=== PATIENT | female | born 1950 | race Caucasian/White ===

== ENCOUNTER → 2016-10-19 | Outpatient (CLI) | payer MEDICARE, OTHER ==
[~2016-10-19] MED LIST: ASPIRIN E.C. 8181 MG PO; AVELOX 400MG T400 MG PO; BLACK COHOSH40 MG PO; CARDI-OMEGA1000 MG PO; CO Q-1010 MG PO; COLACE 100100 MG/CAP PO; CRESTOR5 MG PO; NEXIUM 40MG40 MG PO; PROMETHAZINE12.5 M5 PO; SYNTHROID0.075 MG PO; ZOFRAN4 M1 PO
== END ==
LOC: MC.RAD 09:40
DX: Z12.31 Encounter for screening mammogram for malignant neoplasm of breast (principal)

== ENCOUNTER → 2017-11-17 | Outpatient (CLI) | payer MEDICARE, OTHER | LOC: MC.RAD 14:20 | DX: Z12.31 Encounter for screening mammogram for malignant neoplasm of breast (principal); Z98.82 Breast implant status ==

== ENCOUNTER → 2017-11-23 | Outpatient (CLI) | payer MEDICARE, OTHER ==
[~2017-11-23] VITALS: Ht 158.8 cm; Wt 79.6 kg
[~2017-11-23] MED LIST changes: -CO Q-1010 MG PO; +CRANBERRY 100 M1 SGL PO; +CRESTOR 10MG10 MG PO; +GLUCOPHAGE XR500 M1 PO; +MACRODANTIN50 MG/CA1 PO; +MYRBETR50MG PO; +NASONEX SPRAY17 GM NS; +PEPCID 20MG TAB20 MG PO; +PREMARIN VAG42.5 GM VG; +SYNTHROID0.088 MG/T PO; +THE MEDICINE S200 M2 PO; +ZYRTEC 10MG10 MG PO
[2017-11-23 14:41] VITALS: BP 120/66; PULSE 52
== END ==
LOC: LIGHT 13:46
DX: E03.9 Hypothyroidism, unspecified (principal); E78.5 Hyperlipidemia, unspecified; R73.01 Impaired fasting glucose; E66.9 Obesity, unspecified; Z68.31 Body mass index [BMI] 31.0-31.9, adult; Z71.3 Dietary counseling and surveillance
CPT/HCPCS: G0463

== ENCOUNTER → 2017-12-22 | Outpatient (CLI) | payer MEDICARE, OTHER | LOC: LIGHT 14:01 | DX: E78.5 Hyperlipidemia, unspecified (principal); R73.01 Impaired fasting glucose; E03.9 Hypothyroidism, unspecified; E66.9 Obesity, unspecified; Z68.31 Body mass index [BMI] 31.0-31.9, adult; Z71.3 Dietary counseling and surveillance ==

== ENCOUNTER → 2017-12-26 | Outpatient (CLI) | payer MEDICARE, OTHER | LOC: LIGHT 07:48 | DX: R73.01 Impaired fasting glucose (principal); E78.5 Hyperlipidemia, unspecified; E03.9 Hypothyroidism, unspecified; E66.9 Obesity, unspecified; Z68.31 Body mass index [BMI] 31.0-31.9, adult; Z71.3 Dietary counseling and surveillance ==

== ENCOUNTER → 2018-01-04 | Outpatient (CLI) | payer MEDICARE, OTHER ==
[~2018-01-04] VITALS: Ht 158.8 cm; Wt 77.8 kg
[2018-01-04 13:51] VITALS: BP 126/54; PULSE 68
== END ==
LOC: LIGHT 11:43
DX: E88.81 Metabolic syndrome and other insulin resistance (principal); E78.5 Hyperlipidemia, unspecified; E03.9 Hypothyroidism, unspecified; E66.9 Obesity, unspecified; Z68.30 Body mass index [BMI] 30.0-30.9, adult; Z71.3 Dietary counseling and surveillance
CPT/HCPCS: G0463

== ENCOUNTER → 2018-02-15 | Outpatient (CLI) | payer MEDICARE, OTHER ==
[~2018-02-15] VITALS: Ht 158.8 cm; Wt 76.7 kg
[2018-02-15 13:52] VITALS: BP 130/52; PULSE 60
== END ==
LOC: LIGHT 13:27
DX: E88.81 Metabolic syndrome and other insulin resistance (principal); E78.5 Hyperlipidemia, unspecified; E03.9 Hypothyroidism, unspecified; E66.9 Obesity, unspecified; Z68.30 Body mass index [BMI] 30.0-30.9, adult; Z71.3 Dietary counseling and surveillance
CPT/HCPCS: G0463

== ENCOUNTER → 2018-03-15 | Outpatient (CLI) | payer MEDICARE, OTHER ==
[~2018-03-15] VITALS: Ht 158.8 cm; Wt 76.2 kg
[2018-03-15 10:14] VITALS: BP 150/76; PULSE 60
== END ==
LOC: LIGHT 10:01
DX: E88.81 Metabolic syndrome and other insulin resistance (principal); E78.5 Hyperlipidemia, unspecified; E03.9 Hypothyroidism, unspecified; E66.9 Obesity, unspecified; Z68.30 Body mass index [BMI] 30.0-30.9, adult; Z71.3 Dietary counseling and surveillance
CPT/HCPCS: G0463

== ENCOUNTER → 2018-04-19 | Outpatient (CLI) | payer MEDICARE, OTHER ==
[~2018-04-19] VITALS: Ht 158.8 cm; Wt 75.7 kg
[2018-04-19 10:39] VITALS: BP 110/60; PULSE 64
== END ==
LOC: LIGHT 10:24
DX: R73.01 Impaired fasting glucose (principal); E78.5 Hyperlipidemia, unspecified; E03.9 Hypothyroidism, unspecified; E66.9 Obesity, unspecified; Z68.30 Body mass index [BMI] 30.0-30.9, adult; Z71.3 Dietary counseling and surveillance
CPT/HCPCS: G0463

== ENCOUNTER → 2018-05-24 | Outpatient (CLI) | payer MEDICARE, OTHER ==
[~2018-05-24] VITALS: Ht 158.8 cm; Wt 76.7 kg
[2018-05-24 13:33] VITALS: BP 110/80; PULSE 68
== END ==
LOC: LIGHT 13:21
DX: R73.01 Impaired fasting glucose (principal); E78.5 Hyperlipidemia, unspecified; E03.9 Hypothyroidism, unspecified; E66.9 Obesity, unspecified; Z68.30 Body mass index [BMI] 30.0-30.9, adult; Z71.3 Dietary counseling and surveillance
CPT/HCPCS: G0463

== ENCOUNTER → 2018-06-28 | Outpatient (CLI) | payer MEDICARE, OTHER ==
[~2018-06-28] VITALS: Ht 158.8 cm; Wt 76.9 kg
[2018-06-28 14:20] VITALS: BP 128/82; PULSE 60
== END ==
LOC: LIGHT 13:27
DX: R73.01 Impaired fasting glucose (principal); E78.5 Hyperlipidemia, unspecified; E03.9 Hypothyroidism, unspecified; E66.9 Obesity, unspecified; Z71.3 Dietary counseling and surveillance

== ENCOUNTER → 2018-08-09 | Outpatient (CLI) | payer MEDICARE, OTHER ==
[~2018-08-09] VITALS: Ht 158.8 cm; Wt 77.8 kg
[2018-08-09 10:21] VITALS: BP 130/64; PULSE 60
== END ==
LOC: LIGHT 10:02
DX: R73.01 Impaired fasting glucose (principal); E78.5 Hyperlipidemia, unspecified; E03.9 Hypothyroidism, unspecified; E66.9 Obesity, unspecified; Z68.30 Body mass index [BMI] 30.0-30.9, adult; Z71.3 Dietary counseling and surveillance
CPT/HCPCS: G0463

== ENCOUNTER → 2018-09-13 | Outpatient (CLI) | payer MEDICARE, OTHER ==
[~2018-09-13] VITALS: Ht 158.8 cm; Wt 76.7 kg
[2018-09-13 11:44] VITALS: BP 134/80; PULSE 60
== END ==
LOC: LIGHT 11:33
DX: R73.01 Impaired fasting glucose (principal); E78.5 Hyperlipidemia, unspecified; E03.9 Hypothyroidism, unspecified; E66.9 Obesity, unspecified; Z68.30 Body mass index [BMI] 30.0-30.9, adult; Z71.3 Dietary counseling and surveillance
CPT/HCPCS: G0463

== ENCOUNTER → 2018-10-18 | Outpatient (CLI) | payer MEDICARE, OTHER ==
[~2018-10-18] VITALS: Ht 158.8 cm; Wt 75.5 kg
[2018-10-18 14:02] VITALS: BP 130/66; PULSE 60
== END ==
LOC: LIGHT 11:42
DX: R73.01 Impaired fasting glucose (principal); E78.5 Hyperlipidemia, unspecified; E03.9 Hypothyroidism, unspecified; E66.9 Obesity, unspecified; Z68.30 Body mass index [BMI] 30.0-30.9, adult; Z71.3 Dietary counseling and surveillance
CPT/HCPCS: G0463

== ENCOUNTER → 2018-11-15 | Outpatient (CLI) | payer MEDICARE, OTHER ==
[~2018-11-15] VITALS: Ht 158.8 cm; Wt 76.0 kg
[2018-11-15 09:42] VITALS: BP 134/80; PULSE 68
== END ==
LOC: LIGHT 09:34
DX: R73.01 Impaired fasting glucose (principal); E78.5 Hyperlipidemia, unspecified; E03.9 Hypothyroidism, unspecified; E66.9 Obesity, unspecified; Z68.30 Body mass index [BMI] 30.0-30.9, adult; Z71.3 Dietary counseling and surveillance
CPT/HCPCS: G0463

== ENCOUNTER → 2018-12-24 | Outpatient (CLI) | payer MEDICARE, OTHER | LOC: MC.RAD 10:56 | DX: Z12.31 Encounter for screening mammogram for malignant neoplasm of breast (principal) ==

== ENCOUNTER → 2019-01-03 | Outpatient (CLI) | payer MEDICARE, OTHER ==
[~2019-01-03] VITALS: Ht 158.8 cm; Wt 77.6 kg
[~2019-01-03] MED LIST changes: +PHENTERMINE15 MG PO
[2019-01-03 14:11] VITALS: BP 128/60; PULSE 64
== END ==
LOC: LIGHT 11:48
DX: R73.01 Impaired fasting glucose (principal); E78.5 Hyperlipidemia, unspecified; E03.9 Hypothyroidism, unspecified; E66.9 Obesity, unspecified; Z68.30 Body mass index [BMI] 30.0-30.9, adult; Z71.3 Dietary counseling and surveillance
CPT/HCPCS: G0463

== ENCOUNTER 2019-01-29 10:45 | Outpatient (RCR) | payer MEDICARE, OTHER ==
[2019-03-21] MEDS ORDERED: TROKEND25 PO (13:49)
== END 2019-03-25 | disposition home or self-care (01) ==
LOC: MKS.ESL.PT
DX: M16.11 Unilateral primary osteoarthritis, right hip (principal)

== ENCOUNTER → 2019-02-14 | Outpatient (CLI) | payer MEDICARE, OTHER ==
[~2019-02-14] VITALS: Ht 158.8 cm; Wt 77.6 kg
[2019-02-14 15:36] VITALS: BP 136/76; PULSE 60
== END ==
LOC: LIGHT 01-31 14:14
DX: E78.5 Hyperlipidemia, unspecified (principal); R73.01 Impaired fasting glucose; E03.9 Hypothyroidism, unspecified; E66.9 Obesity, unspecified; Z68.30 Body mass index [BMI] 30.0-30.9, adult; Z71.3 Dietary counseling and surveillance
CPT/HCPCS: G0463

== ENCOUNTER → 2019-03-21 | Outpatient (CLI) | payer MEDICARE, OTHER ==
[~2019-03-21] VITALS: Ht 158.8 cm; Wt 76.9 kg
[~2019-03-21] MED LIST changes: +TROKEND25 PO
[2019-03-21 10:33] VITALS: BP 120/80; PULSE 60
== END ==
LOC: LIGHT 10:20
DX: R73.01 Impaired fasting glucose (principal); E78.5 Hyperlipidemia, unspecified; E03.9 Hypothyroidism, unspecified; E66.9 Obesity, unspecified; Z68.30 Body mass index [BMI] 30.0-30.9, adult; Z71.3 Dietary counseling and surveillance
CPT/HCPCS: G0463

== ENCOUNTER → 2019-06-27 | Outpatient (CLI) | payer MEDICARE, OTHER ==
[~2019-06-27] VITALS: Ht 158.8 cm; Wt 76.4 kg
[2019-06-27 10:51] VITALS: BP 126/72; PULSE 68
== END ==
LOC: LIGHT 10:39
DX: Z68.30 Body mass index [BMI] 30.0-30.9, adult (principal); R73.01 Impaired fasting glucose; E78.5 Hyperlipidemia, unspecified
CPT/HCPCS: G0463

== ENCOUNTER → 2019-12-05 | Outpatient (CLI) | payer MEDICARE, OTHER ==
[~2019-12-05] VITALS: Ht 158.8 cm; Wt 78.2 kg
[2019-12-05 10:50] VITALS: BP 146/70; PULSE 68
== END ==
LOC: LIGHT 10:15
DX: E66.8 Other obesity (principal); Z68.31 Body mass index [BMI] 31.0-31.9, adult; R73.01 Impaired fasting glucose; E78.5 Hyperlipidemia, unspecified; E03.9 Hypothyroidism, unspecified
CPT/HCPCS: G0463

== ENCOUNTER → 2019-12-26 | Outpatient (CLI) | payer MEDICARE, OTHER | LOC: MC.RAD 10:45 | DX: Z12.31 Encounter for screening mammogram for malignant neoplasm of breast (principal); Z98.82 Breast implant status ==

== ENCOUNTER → 2020-02-27 | Outpatient (CLI) | payer MEDICARE, OTHER ==
[~2020-02-27] VITALS: Ht 158.8 cm; Wt 78.0 kg
[2020-02-27 14:20] VITALS: BP 158/70; PULSE 60
== END ==
LOC: LIGHT 01-23 11:04
DX: E66.8 Other obesity (principal); Z68.31 Body mass index [BMI] 31.0-31.9, adult; R73.01 Impaired fasting glucose; E78.5 Hyperlipidemia, unspecified; E03.9 Hypothyroidism, unspecified
CPT/HCPCS: G0463

== ENCOUNTER 2020-11-06 10:30 | Outpatient (RCR) | payer MEDICARE, OTHER | END 2020-11-06 13:58 | disposition home or self-care (01) | LOC: MKS.ESL.PT 10:30 | DX: M76.892 Other specified enthesopathies of left lower limb, excluding foot (principal); M77.8 Other enthesopathies, not elsewhere classified ==

== ENCOUNTER 2021-02-03 10:00 | Outpatient (RCR) | payer MEDICARE, OTHER | END 2021-02-03 13:07 | disposition home or self-care (01) | LOC: MKS.ESL.PT 10:00 | DX: M17.11 Unilateral primary osteoarthritis, right knee (principal) ==

== ENCOUNTER → 2021-03-03 | Outpatient (CLI) | payer MEDICARE, OTHER | LOC: MC.RAD 14:00 | DX: Z12.31 Encounter for screening mammogram for malignant neoplasm of breast (principal); Z98.82 Breast implant status ==

== ENCOUNTER → 2023-04-11 | Outpatient (CLI) | payer MEDICARE, OTHER | LOC: MC.RAD 07:09 → COL.RAD 07:30 | DX: Z12.31 Encounter for screening mammogram for malignant neoplasm of breast (principal) ==

== ENCOUNTER → 2024-01-03 | Outpatient (CLI) | payer MEDICARE, OTHER | LOC: COL.RAD 13:33 | DX: N30.21 Other chronic cystitis with hematuria (principal) ==